=== PATIENT | female | born 1995 | race Caucasian/White ===

== ENCOUNTER 2019-10-07 15:21 | Emergency (ER) | payer OTHER, SELFPAY ==
--- NOTE | ~2019-10-07 | XR_ITS ---
EXAMINATION: XR facial bones min 3V INDICATION: Facial pain TECHNIQUE: Four views of the facial bones are obtained. COMPARISON: None available FINDINGS: No facial bone fracture is identified. The soft tissues are unremarkable. There is normal p neumatization and aeration of the paranasal sinuses. IMPRESSION: 1. No facial bone fracture identified. If there is high clinical suspicion for facial fracture, consi razia further evaluation with CT. Reviewed, dictated and finalized at location A. IMPRESSION: 1. No facial bone fracture identified. If there is high clinical suspicion for facial fracture, consider further evaluation with CT.
[2019-10-07 15:35] VITALS: BP 144/93; PULSE 130; RESP 22; TEMP 37.3; O2SAT 97
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
== END 2019-10-07 16:11 | disposition home or self-care (01) ==
PROVIDERS: Emergency Provider Nurse Practitioner Family
DX: S00.83XA Contusion of other part of head, initial encounter (principal); R03.0 Elevated blood-pressure reading, without diagnosis of hypertension; Y04.2XXA Assault by strike against or bumped into by another person, initial encounter
CPT/HCPCS: 70150; 99213; G0463

== ENCOUNTER 2019-10-07 17:18 | Emergency (ER) | payer OTHER, SELFPAY ==
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
[2019-10-07 17:30] VITALS: BP 141/91; PULSE 96; RESP 16; TEMP 36.5; O2SAT 97
[2019-10-07 19:02] VITALS: BP 132/87; PULSE 90; RESP 14; O2SAT 98
== END 2019-10-07 19:03 | disposition home or self-care (01) ==
PROVIDERS: Emergency Provider Emergency Medicine
DX: S00.83XA Contusion of other part of head, initial encounter (principal); S00.81XA Abrasion of other part of head, initial encounter; Y04.2XXA Assault by strike against or bumped into by another person, initial encounter
CPT/HCPCS: 70150; 70486; 72125; 99213; 99284; G0463

== ENCOUNTER 2020-01-24 09:25 | Emergency (ER) | payer OTHER, SELFPAY ==
[2020-01-24 09:36] VITALS: BP 119/74; PULSE 88; RESP 16; TEMP 36.8; O2SAT 100
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
== END 2020-01-24 10:15 | disposition home or self-care (01) ==
PROVIDERS: Emergency Provider Nurse Practitioner Family
DX: N39.0 Urinary tract infection, site not specified (principal); T19.2XXA Foreign body in vulva and vagina, initial encounter; F17.200 Nicotine dependence, unspecified, uncomplicated
CPT/HCPCS: 81003; 87077; 87086; 87088; 87186; 99213; G0463